=== PATIENT | male | born 1975 | race Caucasian/White ===

== ENCOUNTER → 2016-07-14 | Outpatient (CLI) | payer OTHER ==
[~2016-07-14] MED LIST: ADVAIR 100-501 EACH INH; CHILDREN'S CHEW81 MG PO; FLONASE ALLER15.8 ML NOSE; NEXIUM40 MG PO; OXYCONTIN EXTEN10 MG PO; PERCOCET 5-3251 EACH PO; TYLENOL325 MG PO; VALIUM5 MG PO
== END | disposition disaster alternative care site (69) ==
LOC: GRAD 07:32
DX: M25.572 Pain in left ankle and joints of left foot (principal); S93.492D Sprain of other ligament of left ankle, subsequent encounter; S96.812D Strain of other specified muscles and tendons at ankle and foot level, left foot, subsequent encounter; M85.672 Other cyst of bone, left ankle and foot; M25.772 Osteophyte, left ankle; R60.9 Edema, unspecified